=== PATIENT | female | born 1955 | race Caucasian/White ===

== ENCOUNTER → 2016-11-21 | Outpatient (CLI) | payer BC ==
--- NOTE | 2016-11-22 11:29 | KCIC ---
DATE: November 21, 2016 EXAM: DIGITAL DIAGNOSTIC RT, BREAST RIGHT HISTORY: Follow-up of fat necrosis. COMPARISON: May 15, 2016. This study was interpreted with the benefit of Computerized Aided Detection (CAD ). Right-sided Diagnostic mammographic FINDINGS: The breast parenchyma is scattered and mildly dense. Again seen is an oil cyst of the 9:00 position of the right breast. No new pleomorphic microcalcifications or architectural distortion is seen. Right breast sonography: The 9:00 position 2 cm of the nipple, a hypoechoic nodule is seen measuring 8 mm x 6 mm x 6 mm in size. No abnormal color Doppler flow seen within it. On the previous study, it measured 8.5 mm and 7 mm and 6 mm in size. Therefore, there is no increase in size of this nodule. IMPRESSION: No change in size of oil cyst of the 9:00 position of the right breast consistent with fat necrosis. Recommend bilateral mammography in 6 months and a follow-up sonogram of the right breast in 6 months for further evaluation. BI-RADS CATEGORY: 3 PROBABLE BENIGN-SHORT TERM F/U RECOMMENDED FOLLOW-UP: 6 months. PQRS compliance statement: Patient information was entered into a reminder system with a target due date May 21, 2017 for the next mammogram and ultrasound. Mammography is a sensitive method for finding small breast cancers, but it does not detect them all and is not a substitute for careful clinical examination. A negative mammogram does not negate a clinically suspicious finding and should not result in delay in biopsying a clinically suspicious abnormality. "Our facility is accredited by the [employer] Mammography Program." The patient's breast density may affect the ability of mammography to detect breast cancer. There are 4 categories of breast density, A, B, C and D. Breast density A means that most of the breast tissue is replaced with adipose tissue and therefore is not dense. Breast density B means that the breast tissue is mildly dense and scattered. Breast density C means that the breast tissue is heterogeneously dense. Breast density D means that the breast tissue is very dense. Breast densities especially C and D may decrease the sensitivity of mammography to detect breast cancer. Therefore, the patient may benefit from 3- D breast mammography (3D breast tomography) as a part of their screening mammogram. Insurance may or may not pay for this additional imaging. The patient 's breast density based on today's mammogram is category B. MTDD
== END | disposition home or self-care (01) ==
LOC: KCIC MAMMO 13:30
PROVIDERS: ATTEND Family Medicine
DX: R92.8 Other abnormal and inconclusive findings on diagnostic imaging of breast (principal)
CPT/HCPCS: 76641; G0206; 77065

== ENCOUNTER → 2017-01-03 | Outpatient (CLI) | payer BC ==
--- NOTE | 2017-01-03 17:06 | CARD ---
APPROVED REPORT EXAM: Two-dimensional and M-mode echocardiogram with Doppler and color Doppler. INDICATION Abnormal EKG (Non-specific [facility] electrocardiographic changes) RISK FACTORS Hypertension Family History 2D DIMENSIONS RVDd1.9 (2.9-3.5cm)Left Atrium(2D)3.0 (1.6-4.0cm) IVSd0.8 (0.7-1.1cm)Aortic Root(2D)2.2 (2.0-3.7cm) LVDd4.4 (3.9-5.9cm)LVOT Diameter2.1 (1.8-2.4cm) PWd0.8 (0.7-1.1cm)LVDs3.0 (2.5-4.0cm) FS (%) 31.4 %SV52.5 ml LVEF(%)60.0 (>50%) Aortic Valve AoV Peak Emeterio.118.0cm/sAoV VTI26.4cm AO Peak GR.5.6mmHgLVOT Peak Emeterio.100.2cm/s AO Mean GR.3mmHgAVA (VMAX)2.92cm2 Mitral Valve MV E Caaqhdeo82.9cm/sMV E Peak Gr.3mmHg MV DECEL [id number] A Xnvrnscx493.4cm/s MV E Mean Gr.2mmHgE/A Ratio0.9 MV A [id number] Pulmonary Valve PV Peak Dbmxavia84.4cm/s Tricuspid Valve TR P. Mdvqqtmy296nz/sTR Peak Gr.15mmHg Pulmonary Vein S1 Vmzyvofh00.0cm/sD2 Lgdtwrhf54.1cm/s PVa [id number] LEFT VENTRICLE The left ventricle is normal size. There is normal left ventricular wall thickness. The left ventricu lar systolic function is normal and the ejection fraction is within normal range. The Ejection Fracti on is 60%. There is normal LV segmental wall motion. Transmitral Doppler flow pattern is Grade I-abno rmal relaxation pattern. RIGHT VENTRICLE The right ventricle is normal size. There is normal right ventricular wall thickness. The right ventr icular systolic function is normal. ATRIA The left atrium size is normal. The right atrium size is normal. The interatrial septum is intact wit h no evidence for an atrial septal defect or patent foramen ovale as noted on 2-D or Doppler imaging. AORTIC VALVE The aortic valve is normal in structure and function. Doppler and Color Flow revealed no significant aortic regurgitation. There is no significant aortic valvular stenosis. MITRAL VALVE The mitral valve is normal in structure and function. There is no evidence of mitral valve prolapse. There is no mitral valve stenosis. Doppler and Color Flow revealed no mitral valve regurgitation note d. TRICUSPID VALVE Doppler and Color Flow revealed trace tricuspid regurgitation. The pulmonary artery systolic pressure is estimated at 20 mmHg. There is no pulmonary hypertension. PULMONIC VALVE Doppler and Color Flow revealed trace pulmonic valvular regurgitation. GREAT VESSELS The aortic root is normal in size. The ascending aorta is normal in size. The pulmonary artery is nor mal. The IVC is normal in size and collapses >50% with inspiration. PERICARDIAL EFFUSION There is no evidence of significant pericardial effusion. Critical Notification Critical Value: No <Conclusion> The left ventricular systolic function is normal and the ejection fraction is within normal range. The Ejection Fraction is 60%. Transmitral Doppler flow pattern is Grade I-abnormal relaxation pattern. The left atrium size is normal. The right atrium size is normal. The aortic valve is normal in structure and function. The mitral valve is normal in structure and function. Doppler and Color Flow revealed trace tricuspid regurgitation. The pulmonary artery systolic pressure is estimated at 20 mmHg. There is no pulmonary hypertension. Doppler and Color Flow revealed trace pulmonic valvular regurgitation. There is no evidence of significant pericardial effusion.
== END | disposition home or self-care (01) ==
LOC: ECHO 07:37
PROVIDERS: ATTEND Internal Medicine Cardiovascular Disease
DX: R94.31 Abnormal electrocardiogram [ECG] [EKG] (principal); I10 Essential (primary) hypertension; I07.1 Rheumatic tricuspid insufficiency; I37.1 Nonrheumatic pulmonary valve insufficiency; I27.2 Other secondary pulmonary hypertension
CPT/HCPCS: 93306

== ENCOUNTER → 2018-03-11 | Outpatient (CLI) | payer BC | END | disposition home or self-care (01) | LOC: KCIC MAMMO 09:49 | DX: R92.8 Other abnormal and inconclusive findings on diagnostic imaging of breast (principal) | CPT/HCPCS: 76641; 77066 ==

== ENCOUNTER → 2018-03-27 | Outpatient (CLI) | payer BC | END | disposition home or self-care (01) | LOC: KCIC 10:13 | DX: M77.52 Other enthesopathy of left foot and ankle (principal) | CPT/HCPCS: 73630 ==

== ENCOUNTER → 2018-05-29 | Outpatient (CLI) | payer BC | END | disposition home or self-care (01) | LOC: KCIC US 08:48 | DX: R10.11 Right upper quadrant pain (principal); I10 Essential (primary) hypertension; I27.20 Pulmonary hypertension, unspecified; I25.10 Atherosclerotic heart disease of native coronary artery without angina pectoris | CPT/HCPCS: 76700 ==

== ENCOUNTER → 2019-03-22 | Outpatient (CLI) | payer BC ==
--- NOTE | 2019-03-23 09:49 | KCIC ---
Bilateral digital screening mammograms with 3-D tomosynthesis: Reason for examination: Routine screening. Comparison is made to previous studies dated 03/11/2018 and 11/21/2016. Bilateral mammograms in CC and oblique projections were obtained with 2-D imaging and 3-D tomosynthesis imaging on a Siemens Inspiration unit and reviewed on the workstation. Interpretation was made with the benefit of CAD. The skin and nipples show no abnormalities. No abnormal axillary lymph nodes are seen. The breast parenchyma shows scattered fatty and fibroglandular density. (Breast density: Category B.) There continues to be small nodular parenchymal density present anteriorly in the 12:00 position of the right breast measuring approximately 1 cm in size. There are no new dominant masses, suspicious calcifications or architectural distortion. Benign calcifications are present. Impression: No evidence of malignancy. Recommend routine screening. BI-RAD Category 2: Benign. "Our facility is accredited by the [employer] Mammography [employer]." This patient's information has been entered into a reminder system for the patient to be notified with the results of her examination and a target date for the next mammogram. Electronically signed by: Mervat Casillas MD (03/22/2019 4:28 PM) [id number]
== END | disposition home or self-care (01) ==
LOC: KCIC MAMMO 14:48
PROVIDERS: ATTEND Family Medicine
DX: Z12.31 Encounter for screening mammogram for malignant neoplasm of breast (principal); N63.12 Unspecified lump in the right breast, upper inner quadrant; N64.89 Other specified disorders of breast
CPT/HCPCS: 77063; 77067

== ENCOUNTER → 2020-01-05 | Outpatient (CLI) | payer BC ==
--- NOTE | 2020-01-05 15:29 | KCIC ---
KNEE LEFT 3V DATE: 01/05/2020 1:49 PM INDICATION: Knee pain COMPARISON: None. FINDINGS: Bones: There is no evidence of acute fracture or dislocation. Superior patellar enthesophyte. Joints: Mild to moderate tricompartmental degenerative changes. There is no joint effusion. Miscellaneous: None. IMPRESSION: No acute fracture. Mild to moderate degenerative changes. Electronically signed by: Beltran Higgins MD (01/05/2020 3:26 PM) [id number]
== END ==
LOC: KCIC 13:54
PROVIDERS: ATTEND Family Medicine
DX: M17.12 Unilateral primary osteoarthritis, left knee (principal)
CPT/HCPCS: 73562

== ENCOUNTER → 2020-04-25 | Outpatient (CLI) | payer BC ==
--- NOTE | 2020-04-25 13:18 | KCIC ---
Bilateral digital screening mammograms with 3-D tomosynthesis: Reason for examination: Routine screening. Comparison is made to previous studies dated back to 04/18/2016. Bilateral mammograms in CC and oblique projections were obtained with 2-D imaging and 3-D tomosynthesis imaging on a Siemens Inspiration unit and reviewed on the workstation. Interpretation was made with the benefit of CAD. The skin and nipples show no abnormalities. No abnormal axillary lymph nodes are seen. The breast parenchyma shows scattered fatty and fibroglandular density. (Breast density: Category B.) There continues to be a nodular parenchymal density in the 12:00 position anteriorly in the right breast which is stable. There are no new dominant masses, suspicious calcifications or architectural distortion. Benign calcifications are present. Impression: No evidence of malignancy. Recommend routine screening. BI-RAD Category 2: Benign. "Our facility is accredited by the [employer] Mammography Program." This patient's information has been entered into a reminder system for the patient to be notified with the results of her examination and a target date for the next mammogram. Electronically signed by: Mervat Casillas MD (04/25/2020 1:15 PM) [id number]
== END | disposition home or self-care (01) ==
LOC: KCIC MAMMO 10:50
PROVIDERS: ATTEND Family Medicine
DX: Z12.31 Encounter for screening mammogram for malignant neoplasm of breast (principal)
CPT/HCPCS: 77063; 77067

== ENCOUNTER → 2020-12-27 | Outpatient (CLI) | payer BC ==
--- NOTE | 2020-12-27 13:11 | KCIC ---
INDICATION: Screening for osteopenia/osteoporosis. Postmenopausal evaluation. COMPARISON: None. TECHNIQUE: Bone densitometry was performed through the lumbar spine and proximal femur. IMPRESSION: Lumbar Spine: BMD: 0.89 T-Score: -1.4 Range: Osteopenic Proximal Femur: BMD: 0.88 T-Score: -0.5 Range: Normal World Health Organization Criteria for Bone Density: T-Score: > -1.0: Normal Range < -1.0 to -2.5: Osteopenic Range < -2.5: Osteoporotic Range Electronically signed by: Valeriy David MD (12/27/2020 1:09 PM) [id number]
== END ==
LOC: KCIC DEXA 10:57
PROVIDERS: ATTEND Family Medicine
DX: Z78.0 Asymptomatic menopausal state (principal)
CPT/HCPCS: 77080

== ENCOUNTER → 2021-02-12 | Outpatient (CLI) | payer BC ==
[~2021-02-12] MED LIST: ALPR0.254 PO; ALPR1TAB6 PO; ASPI-630 PO; CLON0.1T PO; CRESTOR40 MG PO; DICY10CA3 PO; GADOTERATE 7.5 MMOL/15ML VIAL. IVP ONE; OLME20TA17 PO
--- NOTE | 2021-02-13 14:06 | KCIC ---
MRI ABDOMEN WITH AND WITHOUT CONTRAST-: 02/12/2021 2:45 PM INDICATION: 65 years old Female. Left renal lesion. COMPARISON: CT abdomen/pelvis 06/29/2015. TECHNIQUE: Multiplanar multisequence MR imaging of the abdomen was performed both before and after th e intravenous administration of gadolinium. 20 cc gadolinium based contrast. FINDINGS: LUNG BASES: Unremarkable. ABDOMEN: LIVER: Normal morphology. There is mild diffuse hepatic steatosis present. There is no focal hepatic parenchymal abnormality. BILE DUCTS: There is no intra or extrahepatic biliary ductal dilatation. GALLBLADDER: Unremarkable. Common bile duct measures 6 mm. PANCREAS: Unremarkable. Normal caliber pancreatic duct. SPLEEN: Within normal limits. ADRENAL GLANDS: Unremarkable. KIDNEYS: There is an 8.5 mm cyst in the interpolar right kidney. There is a 4 month persistent inferi or pole the left kidney. There is a partially exophytic simple cyst in the superior pole of left kidn ey measuring 5 mm.. There is a nonenhancing lesion in the anterior interpolar left kidney measuring 1 0 mm with intrinsic T1 signal hyperintensity which could represent a cyst, can by hemorrhage or prote in. Findings appear partly involuted as compared to 06/29/2015 CT with lesion measured 1.7 cm. No hydr onephrosis. BOWEL: Normal caliber. PERITONEUM: No ascites or free air. No fluid collection. VASCULATURE: No abdominal aortic aneurysm. Major abdominal veins are patent. RETROPERITONEUM: Within normal limits. LYMPH NODES: Within normal limits. ABDOMINAL WALL: Unremarkable. BONES: No suspicious osseous abnormality. IMPRESSION: 1. No suspicious left renal lesion is identified. There is a cyst complicated by hemorrhage or protei n which appears nonenhancing and partly included as compared 06/29/2015 currently measuring 10 mm oppo sed to 17 mm on the prior examination. 2. Simple appearing bilateral renal cysts. Electronically signed by: Vera Tong MD (02/13/2021 2:04 PM) [id number]
== END ==
LOC: KCIC MRI 14:22
PROVIDERS: ATTEND Internal Medicine Gastroenterology
DX: K76.0 Fatty (change of) liver, not elsewhere classified (principal); N28.1 Cyst of kidney, acquired
CPT/HCPCS: 74183; A9575

== ENCOUNTER → 2021-05-01 | Outpatient (CLI) | payer BC ==
[~2021-05-01] MED LIST changes: -GADOTERATE 7.5 MMOL/15ML VIAL. IVP ONE
--- NOTE | 2021-05-01 10:19 | KCIC ---
Bilateral digital screening mammograms with 3-D tomosynthesis: Reason for examination: Routine screening. Comparison is made to previous studies dated back to 04/18/2016. Bilateral mammograms in CC and oblique projections were obtained with 2-D imaging and 3-D tomosynthes is imaging on a Siemens Inspiration unit and reviewed on the workstation. Interpretation was made wit h the benefit of CAD. The skin and nipples show no abnormalities. No abnormal axillary lymph nodes are seen. The breast par enchyma shows scattered fatty and fibroglandular density. (Breast density: Category B.) There are no dominant masses, suspicious calcifications or architectural distortion. Benign calcifications are pre sent. Impression: No evidence of malignancy. Recommend routine screening. BI-RAD Category 2: Benign. "Our facility is accredited by the [employer] Mammography Program." This patient's information has been entered into a reminder system for the patient to be notified wit h the results of her examination and a target date for the next mammogram. Electronically signed by: Mervat Casillas MD (05/01/2021 10:16 AM) [id number]
== END ==
LOC: KCIC MAMMO 08:04
PROVIDERS: ATTEND Family Medicine
DX: Z12.31 Encounter for screening mammogram for malignant neoplasm of breast (principal)
CPT/HCPCS: 77063; 77067